=== PATIENT | male | born 1990 | race Caucasian/White ===

== ENCOUNTER 2020-07-01 10:39 | Emergency (ER) | payer SELFPAY ==
[~2020-07-01 10:39] MED LIST: BENTYL10 MG PO; MOBIC15 MG PO; OMEPRAZOLE40 MG PO; PEPCID AC20 MG PO; ROBAXIN750 MG PO
[2020-07-01 12:08] LABS: BASOPHIL 1.1 % (0-2); EOSINOPHIL 3.7 % (0-5); HCT 44.6 % (42.0-52.0); LYMPHOCYTE 26.8 % (15-48); MCH 27.6 pg (25.0-31.0); MCHC 33.6 g/dL (32.0-36.0); MCV 82.1 fL (78.0-100.0); MONOCYTE 8.1 % (0-12); MPV 10.9 fL (6.0-9.5); NEUTROPHIL 59.9 % (41-80); NRBC 0; PLT 208 K/uL (150-400); RBC 5.43 M/uL (4.70-6.00); RDW 13.7 % (11.5-14.0); WBC 5.4 K/uL (4.0-10.5)
[2020-07-01 12:36] LABS: BILIRUBIN NEGATIVE (NEGATIVE); BLOOD NEGATIVE Ery/uL (NEGATIVE); CLARITY CLEAR (CLEAR); COLOR YELLOW (YELLOW); GLUCOSE (U) NORMAL (NORMAL); LEUKOCYTES NEGATIVE Leu/uL (NEGATIVE); NITRITE NEGATIVE (NEGATIVE); PROTEIN NEGATIVE (NEGATIVE); UROBILINOGEN 0.2 mg/dL (0.2-1.0); pH 8.5 (5.0-9.0)
[2020-07-01 12:39] LABS: ALBUMIN 3.9 g/dL (3.4-5.0); ALKALINE PHOSHATASE 74 U/L (46-116); ALT 148 U/L (16-63); AST 48 U/L (15-37); BILIRUBIN - TOTAL 0.6 mg/dL (0.2-1.0); BUN 12 mg/dL (7-18); BUN/CREAT RATIO (CALC) 10.3 RATIO; CHLORIDE 101 mmol/L (98-107); CO2 (BICARBONATE) 30 mmol/L (21-32); CREATININE 1.16 mg/dL (0.67-1.17); GLOBULIN (CALCULATION) 4.4 g/dL; GLUCOSE 104 mg/dL (74-106); LIPASE 157 U/L (73-393); POTASSIUM 4.4 mmol/L (3.5-5.1); TOTAL PROTEIN 8.3 g/dL (6.4-8.2)
[2020-07-01 12:40] LABS: ACETAMINOPHEN (TYLENOL) < 2.0 ug/mL (10.0-30.0)
[2020-07-01 12:41] LABS: AMPHETAMINES NEGATIVE (NEGATIVE); BARBITURATES NEGATIVE (NEGATIVE); ECSTASY (MDMA) NEGATIVE (NEGATIVE); MARIJUANA (THC) NEGATIVE (NEGATIVE); METHADONE NEGATIVE (NEGATIVE); OPIATES NEGATIVE (NEGATIVE); OXYCODONE NEGATIVE (NEGATIVE)
[2020-07-01] MEDS ORDERED: CARAFATE1 GM PO (16:06)
== END 2020-07-01 16:23 | disposition home or self-care (01) ==
LOC: FER 10:39
PROVIDERS: Emergency Medicine
DX: K29.50 Unspecified chronic gastritis without bleeding (principal); F32.9 Major depressive disorder, single episode, unspecified; Z87.19 Personal history of other diseases of the digestive system
CPT/HCPCS: 36415; 74022; 80053; 80305; 81003; 83690; 84443; 85025; G0480